=== PATIENT | female | born 1960 | race Caucasian/White ===

== ENCOUNTER → 2016-08-10 | Outpatient (CLI) | payer OTHER ==
--- NOTE | 2016-08-10 17:20 | RAD ---
DATE: 08/10/2016 EXAM: MAMMO JESSICA SCREENING BILATERAL HISTORY: Routine screening COMPARISON: 06/18/2015 This study was interpreted with the benefit of Computerized Aided Detection (CAD). FINDINGS: 2-D and 3-D tomosynthesis imaging was performed in CC and MLO projections. There are scattered fibroglandular densities in the breasts in a somewhat nodular pattern. There is a 5-6 mm smooth nodule in the medial aspect of the right breast as best delineated on axial jessica image 26. It lies directly adjacent to a benign appearing dense breast calcification. There are 2 smaller similar smooth nodules located more anteriorly in the same portion of the right breast. In retrospect these nodules appear to have been present on the previous study from 06/18/2015, although better delineated on the current jessica images. There probably unchanged. No new or enlarging breast densities are seen. No suspicious microcalcifications are evident. IMPRESSION: Benign-appearing right breast nodules as described above. Right breast ultrasound is suggested for further evaluation. BI-RADS CATEGORY: 0 INCOMPLETE: NEEDS ADDITIONAL IMAGING EVALUATION AND/OR PRIOR MAMMOGRAMS FOR COMPARISON. RECOMMENDED FOLLOW-UP: ADD ADDITIONAL IMAGING PQRS compliance statement: Patient information was entered into a reminder system with a target due date for the next mammogram. Mammography is a sensitive method for finding small breast cancers, but it does not detect them all and is not a substitute for careful clinical examination. A negative mammogram does not negate a clinically suspicious finding and should not result in delay in biopsying a clinically suspicious abnormality. "Our facility is accredited by the [employer] Mammography [employer]."
== END | disposition home or self-care (01) ==
LOC: MAMMO 14:37
PROVIDERS: ATTEND Nurse Practitioner
DX: Z12.31 Encounter for screening mammogram for malignant neoplasm of breast (principal)
CPT/HCPCS: 77063; G0202; 77067

== ENCOUNTER → 2016-09-02 | Outpatient (CLI) | payer OTHER ==
--- NOTE | 2016-09-02 14:40 | RAD ---
Indication well-defined nodules seen on recent mammography. Ultrasound targeted to the medial aspect of the right breast was performed. Note is made of the screening mammogram 08/10/2016. There are 2 well-defined nodules one at the 2:00 position of the breast and a second at the 2:30 position. The 2:00 nodule measures approximately 5 mm in greatest dimension in the 2:30 nodule approximately 3 mm. These have a benign appearance on ultrasound. Follow-up mammography of the right breast and targeted ultrasound is suggested in 6 months to further document stability IMPRESSION: Probable benign nodules right breast. Follow-up mammography of the right breast and targeted ultrasound suggested in 6 months BI-RADS 3. Probably benign
== END | disposition home or self-care (01) ==
LOC: US 13:18
PROVIDERS: ATTEND Nurse Practitioner
DX: N63 Unspecified lump in breast (principal)
CPT/HCPCS: 76641

== ENCOUNTER → 2017-03-12 | Outpatient (CLI) | payer OTHER ==
--- NOTE | 2017-03-12 12:32 | RAD ---
Date: 03/12/2017 Exam: Right breast diagnostic mammogram Indication: Right medial breast abnormal it is seen on previous ultrasound and mammogram from August 2016 Technique: 2-D and 3-D right breast mammogram in MLO and CC views. Comparison: Previous mammogram from 08/10/2016. Findings: The skin and nipple are within normal limits. Benign calcifications noted. Stable round masses are seen with circumscribed borders in the medial aspect of the right breast. The customer contact representative mass measures 5 mm and is 4 cm from the nipple best seen on cc nathan view. Another 6 mm similar lesion is seen in the posterior medial right breast approximately 6 cm from the nipple best seen on cc nathan views. No new calcifications, areas of architectural distortion or masses. Impression: Stable nodular densities in the medial right breast dating back to 2012. Please see separate report on ultrasound from the same day. BI-RADS 3: Probably benign. Six-month ultrasound follow-up of the right breast. PQRS compliance statement: Patient information was entered into a reminder system with a target due date for the next mammogram. Mammography is a sensitive method for finding small breast cancers, but it does not detect them all and is not a substitute for careful clinical examination. A negative mammogram does not negate a clinically suspicious finding and should not result in delay in biopsying a clinically suspicious abnormality. "Our facility is accredited by the [employer] Mammography Program."
--- NOTE | 2017-03-12 12:36 | RAD ---
Ultrasound right breast Indication: Six-month follow-up for previously seen abnormality in the right breast. Technique: Grayscale and color Doppler ultrasound images of the medial right breast. Comparison: Previous breast ultrasound from 09/02/2016 and same day diagnostic mammogram Findings: There is an oval-shaped hypoechoic mass with well-circumscribed borders, wider than taller without posterior features at 2:00 approximately 3 cm from the nipple measuring 0.5 x 0.5 x 0.3 cm, stable from prior study. Another hypoechoic round mass with well-circumscribed borders is seen at 2:30 position approximately 5 cm from the nipple measuring 0.3 x 0.2 x 0.2 cm without posterior features and no blood flow, stable from prior study. Impression: Stable right medial breast benign-appearing masses when compared to previous study from 09/02/2016. Follow-up ultrasound in 6 months. BI-RADS 3: Probably benign. Follow-up ultrasound in 6 months of the right breast recommended.
== END | disposition home or self-care (01) ==
LOC: MAMMO 09:57
PROVIDERS: ATTEND Nurse Practitioner
DX: N63.10 Unspecified lump in the right breast, unspecified quadrant (principal)
CPT/HCPCS: 76641; G0206; G0279; 77061; 77065

== ENCOUNTER → 2018-01-12 | Outpatient (CLI) | payer OTHER ==
--- NOTE | 2018-01-12 15:02 | RAD ---
Right breast ultrasound, 01/12/2018: History: Follow-up breast nodules A targeted ultrasound exam of the right breast was performed at the location where small nodules have been previously delineated. At the 2:00 location, 3 cm from the nipple there is a 4 x 4 x 3 mm smooth hypoechoic nodule. It is wider than tall. It is unchanged since 03/12/2017 and 09/02/2016. At the 2:30 location approximately 5 cm from the nipple there is a another smooth hypoechoic nodule measuring 3 x 2 x 2 mm. It is also unchanged since the previous studies. These are most likely complicated cysts or small fibroadenomas. IMPRESSION: Unchanged small right breast nodules as described above. Follow-up right breast ultrasound and bilateral mammography in 6 months is suggested. BI-RADS 3-probably benign findings
== END | disposition home or self-care (01) ==
LOC: MAMMO 13:34
DX: N63.12 Unspecified lump in the right breast, upper inner quadrant (principal)
CPT/HCPCS: 76641

== ENCOUNTER → 2018-08-15 | Outpatient (CLI) | payer OTHER ==
--- NOTE | 2018-08-15 14:24 | RAD ---
DATE: 08/15/2018 EXAM: MAMMO JESSICA SHANAE SAMPSONAT, BREAST RIGHT HISTORY: Right breast nodule COMPARISON: 08/10/2016, 03/12/2017 This study was interpreted with the benefit of Computerized Aided Detection (CAD). Breast Density: SCATTERED The breast parenchyma shows scattered fibroglandular densities. Breast parenchyma level B. FINDINGS: 2-D and 3-D tomosynthesis imaging was performed in CC and MLO projections. Several small smooth nodules are again noted medially in the right breast. These are unchanged since 08/10/2016. No spiculated mass or architectural distortion is evident. Benign type calcification is present. No suspicious microcalcifications are evident. Right breast ultrasound, 01/12/2018: A targeted ultrasound exam of the right breast was performed and compared to the study of 01/12/2018. At the 2:00 location approximately 3 cm from the nipple there is a 4.5 mm hypoechoic nodule which appears unchanged. At the 2:30 location approximately 5 cm from the nipple there is a 3 mm hypoechoic nodule which is unchanged. These again most likely represent complicated cysts or small fibroadenomas. No other sonographic abnormality is identified in this region. IMPRESSION: Stable right breast nodules, unchanged since 08/10/2016. Routine yearly mammographic follow-up is suggested. BI-RADS CATEGORY: 2 BENIGN FINDING(S) RECOMMENDED FOLLOW-UP: 12M 12 MONTH FOLLOW-UP PQRS compliance statement: Patient information was entered into a reminder system with a target due date for the next mammogram. Mammography is a sensitive method for finding small breast cancers, but it does not detect them all and is not a substitute for careful clinical examination. A negative mammogram does not negate a clinically suspicious finding and should not result in delay in biopsying a clinically suspicious abnormality. "Our facility is accredited by the [employer] Mammography Program."
== END | disposition home or self-care (01) ==
LOC: MAMMO 12:19
PROVIDERS: ATTEND Family Medicine
DX: N63.12 Unspecified lump in the right breast, upper inner quadrant (principal)
CPT/HCPCS: 76641; 77066; G0279; 77062